=== PATIENT | male | born 1955 | race Two or more races ===

== ENCOUNTER 2020-10-01 17:30 | Emergency (ER) | payer BC, MEDICARE ==
[~2020-10-01] VITALS: Ht 165.1 cm; Wt 83.0 kg
[2020-10-01 17:34] VITALS: BP 146/84
--- NOTE | 2020-10-01 17:41 | NUR ---
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
--- NOTE | 2020-10-01 18:10 | NUR ---
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
--- NOTE | 2020-10-01 18:43 | NUR ---
PT TO ROOM 15 W/ C/O LESIONS AND WOUNDS TO PENIS STARTED 4 DAYS AGO. STATES HE HAS NOT HAD SEXUAL INTERVOURSE FOR YEARS. PT NOTED TO HAVE FORESKIN PENIS. MARY SNYDER AT BEDSIDE FOR EVAL.
[2020-10-01] MEDS ORDERED: FLUCONAZOLE 100 MG TABLET ONE (18:55)
[2020-10-01] MEDS ORDERED: FLUCONAZOLE 100 MG TABLET PO ONE (19:00)
== END 2020-10-01 19:04 | disposition home or self-care (01) ==
LOC: ED 18:58
DX: B37.42 Candidal balanitis (principal)
CPT/HCPCS: 99283